=== PATIENT | male | born 1980 | race Caucasian/White ===

== ENCOUNTER → 2017-12-11 | Outpatient (CLI) | payer BC ==
[~2017-12-11] VITALS: Ht 180.3 cm; Wt 86.2 kg
[~2017-12-11] MED LIST: BENICAR20 MG PO; LEXAPRO10 MG PO; MICROZIDE12.5 M1 PO
== END | disposition home or self-care (01) ==
LOC: AMB 11-27 09:00
PROC: 0DJD8ZZ Inspection of Lower Intestinal Tract, Via Natural or Artificial Opening Endoscopic (ICD-10-PCS; principal; 2017-12-11)
DX: K64.8 Other hemorrhoids (principal); I10 Essential (primary) hypertension; G47.33 Obstructive sleep apnea (adult) (pediatric); Z91.041 Radiographic dye allergy status
CPT/HCPCS: 93005; J2250